=== PATIENT | female | born 1955 | race Caucasian/White ===

== ENCOUNTER → 2017-08-14 | Outpatient (CLI) | payer BC, OTHER ==
[~2017-08-14] MED LIST: ASPI81EC PO; CONEST.625 PO; HYDCHL12.5 PO; MULVITMIND PO; [UNRECOGNIZED DRUG - OTHER]
[2017-08-14 16:17] LABS: Albumin, Blood 3.9 g/dL (3.4-5.0); Albumin/Globulin Ratio 1.2 (0.8-1.8); Aspartate Aminotrans (AST/SGOT 14 U/L (12-37); Bilirubin, Total 0.4 mg/dL (0.1-1.0); Blood Urea Nitrogen 24 mg/dL (8-24); CHOL/HDL RATIO 2.4; Calcium, Blood 8.8 mg/dL (8.5-10.1); Chloride, Blood 107 mmol/L (98-108); Cholesterol 262 mg/dL (50-200); Creatinine, Blood 0.65 mg/dL (0.40-1.00); Globulin, Blood 3.3 g/dL (2.2-4.0); Glomerular Filtration Rate >60 (60-); Glucose, Blood 92 mg/dL (70-99); HDL Cholesterol 108 mg/dL (>39); LDL/HDL RATIO 1.3; Low Density Lipoprotein Chol 140 mg/dL (0-110); Potassium, Blood 4.3 mmol/L (3.5-5.5); Sodium, Blood 141 mmol/L (136-145); Total Protein, Blood 7.2 g/dL (6.4-8.2); Triglycerides 69 mg/dL (30-160); Very Low Density Lipoprot Chol 13 mg/dL (6-32)
[2017-08-14 17:31] LABS: Alanine Aminotransfer (ALT/SGP 20 U/L (12-78); Alk Phos 97 U/L (50-136); Anion Gap 8 mmol/L (6-16); CO2, Blood 26 mmol/L (21-32)
== END | disposition home or self-care (01) ==
LOC: LAB SHORT 13:58 → LAB 13:58
PROVIDERS: Hospitalist
DX: Z00.00 Encounter for general adult medical examination without abnormal findings (principal); E78.5 Hyperlipidemia, unspecified; I10 Essential (primary) hypertension
CPT/HCPCS: 80053; 80061

== ENCOUNTER 2019-12-08 06:13 | Day surgery (SDC) | payer BC, OTHER ==
[~2019-12-08] VITALS: Ht 167.6 cm; Wt 80.1 kg
[~2019-12-08 06:13] MED LIST changes: +OMEP20ER; +VITAMIN D W/CALCIUM PO
[2019-12-08] MEDS ORDERED: BARIATRIC VITAMIN PO ×2 (06:32→06:33)
[2019-12-08] MEDS ORDERED: Prilosec Otc20 MG PO (06:34)
--- NOTE | 2019-12-08 07:14 | NUR ---
Lungs clear T/O to Auscultation. Wedding rings taped, waiver signed. Patient put her glasses in her purse for safe keeping.
--- NOTE | 2019-12-08 07:26 | NUR ---
NO CLIP PREP PER DR MONZON.
--- NOTE | 2019-12-08 14:39 | NUR ---
CATHETER PLUNKETT CATHETER REMOVED AT 1400. PT IS ALERT, ORIENTED AND HAS BEEN ABLE TO AMBULATE SINCE RETURNING FROM SURGERY. AWAITING VOID SO PT CAN DISCHARGE HOME.
[2019-12-08] MEDS ORDERED: HYDR1TAB94 PO (17:46)
[2019-12-08] MEDS ORDERED: ACET325 PO (17:46)
[2019-12-08] MEDS ORDERED: DOCU100 PO (17:46)
--- NOTE | 2019-12-08 18:10 | NUR ---
DISCHARGE PT WAS ABLE TO VOID AFTER SURGERY WITH MINIMAL 37ML POST VOID RESIDUAL. SHE WAS ALSO ABLE TO AMBULATE AND TAKE PO WITHOUT NAUSEA. PT WAS PROVIDED WITH WRITTEN AND VERBAL DISCHARGE INSTRUCTIONS. HARD SCRIPT PROVIDED WITH DISCHARGE INFORMATION. PT HAVING SCAN AMOUNT OF BLEEDING AT TIME OF DISCHARGE. PT WAS ABLE TO AMBULATE OUT INDEPENDENTLY. VSS. WILL MONITOR UNTIL REPORT TO ONCOMING RN.
== END 2019-12-08 18:05 | disposition home or self-care (01) ==
LOC: ORSCMMR 06:13 → ORD 07:30 → SURS 09:27 → ORSCMMR 18:05
PROVIDERS: Obstetrics & Gynecology
PROC: 0UQF0ZZ Repair Cul-de-sac, Open Approach (ICD-10-PCS; principal; 2019-12-08 07:30)
PROC: 0JQC0ZZ Repair Pelvic Region Subcutaneous Tissue and Fascia, Open Approach (ICD-10-PCS; principal; 2019-12-08 07:30)
DX: N81.6 Rectocele (principal); N81.10 Cystocele, unspecified; N81.5 Vaginal enterocele; K21.9 Gastro-esophageal reflux disease without esophagitis; Z79.899 Other long term (current) drug therapy
CPT/HCPCS: J0171; J0690; J1885; J2250; J2704; J3010; J7120

== ENCOUNTER 2020-01-27 06:53 | Day surgery (SDC) | payer BC, OTHER, MEDICARE ==
[~2020-01-27] VITALS: Ht 168 cm; Wt 74.8 kg
[~2020-01-27 06:53] MED LIST changes: +ACET325 PO; +BARIATRIC VITAMIN PO; +DOCU100 PO; +HYDR1TAB94 PO; +MYLANTA GAS MIN42 MG PO; +Prilosec Otc20 MG PO; +TUMS500 MG PO; +Voltaren100 GM TOP
--- NOTE | 2020-01-27 08:18 | NUR ---
Ambulatory in Day Surgery History, Chart, Medications and Allergies reviewed before start of procedure.Patient confirms NPO status and agrees with scheduled surgery. Patient reports completing Chlorhexadine shower X2 prior to admission to hospital.Surgical site prepped with 2% Chlorhexidine cloth wipe.
--- NOTE | 2020-01-27 16:25 | NUR ---
SHIFT SUMMARY PT EATING AND DRINKING, VOIDING. PT BEEN UP AND VOIDED. PT WORKED WITH THERAPY. UP TO CHAIR. PT BEEN ASSISTED WITH ADL'S PRN.
[2020-01-28 04:08] LABS: BASOPHILS ABSOLUTE AUTO 0.03 K/mm3 (0.00-0.23); BASOPHILS PERCENT AUTO 1 % (0-2); EOSINOPHILS ABSOLUTE AUTO 0.04 K/mm3 (0.00-0.68); EOSINOPHILS PERCENT AUTO 1 % (0-6); Hematocrit 33.8 % (33.0-51.0); Hemoglobin 10.9 g/dL (11.5-16.0); IMMATURE GRAN ABSOLUTE AUTO 0.02 K/mm3 (0.00-0.10); IMMATURE GRAN PERCENT AUTO 0 % (0-1); LYMPHOCYTES ABSOLUTE AUTO 1.77 K/mm3 (0.84-5.20); LYMPHOCYTES PERCENT AUTO 27 % (21-46); MONOCYTES ABSOLUTE AUTO 0.41 K/mm3 (0.16-1.47); MONOCYTES PERCENT AUTO 6 % (4-13); Mean Corpuscular HGB 30.3 pg (26.0-34.0); Mean Corpuscular HGB Conc 32.2 g/dL (31.5-36.5); Mean Corpuscular Volume 94 fL (80-100); Mean Platelet Volume 12.7 fL (9.1-12.4); NEUTROPHILS ABSOLUTE AUTO 4.29 K/mm3 (1.96-9.15); NEUTROPHILS PERCENT AUTO 65 % (41-73); Platelet Count 181 K/mm3 (150-400); RDW Coefficient Variation 13.8 % (11.7-14.2); RDW Standard Deviation 47.5 fL (35.1-46.3); White Blood Cell Count 6.56 K/mm3 (4.00-11.30)
--- NOTE | 2020-01-28 04:21 | NUR ---
SHIFT SUMMARY POD#1. AAOX4. DRESSING TO RIGHT KNEE C/D/I. PAIN CONTROLLED WITH SCHEDULED TORADOL/TYLENOL + 1 ROXICODONE Q4H. NO NAUSEA/EMESIS. PT UP AMBULATING IN ROOM + OUT IN HALLS MULTIPLE TIMES THIS SHIFT, SBA WITH FWW. GOOD PO INTAKE + OUTPUT. PPP, DENIES N/T ALL EXTREMITIES, MOVES TOES WELL BLE. PT RESTING INTERMITTENTLY THIS SHIFT. NO ACUTE CHANGES OVER NIGHT. PT CURRENTLY RESTING WITH CALL LIGHT IN REACH.
[2020-01-28 04:36] LABS: Anion Gap 5 mmol/L (6-16); Blood Urea Nitrogen 15 mg/dL (8-24); Bun/Creatinine Ratio 26.7 (12.0-20.0); CO2, Blood 27 mmol/L (21-32); Calcium, Blood 8.6 mg/dL (8.5-10.1); Chloride, Blood 110 mmol/L (98-108); Creatinine, Blood 0.56 mg/dL (0.40-1.00); Glomerular Filtration Rate >60 (60-); Glucose, Blood 114 mg/dL (70-99); Potassium, Blood 4.1 mmol/L (3.5-5.5); Sodium, Blood 142 mmol/L (136-145)
--- NOTE | 2020-01-28 11:40 | NUR ---
PT SAT ON CHAIR THIS MORNING AND FELT DIZZY. VIJAY PALOMINO TOOK HIS BLOOD PRESSURE AND IT WAS 66/41. PT REPORT NAUSEA AND VOMITED X1. LEV FONTANEZ CAME IN TO HELPED IN AND ASSESSED PT. LR FLUIDS ADMINISTER. PT FELT BETTER AFTER SHE VOMITED. PT TOLERATED BREAKFAST MEAL WELL, DENIES NAUSEA AND VOMITING. SHE ALSO TOLERATED PO MEDS. SHE C/O OF PAIN, PAIN MEDS ADMINSTERED. PHYSICAL THERAPIST CAME IN, FELT DIZZY AFTER WALKING AT THE HALLWAY. SHE SAT ON CHAIR, BP WAS WNL. PT BACK TO BED, AND AT REST, COMFORTABLE WITH WARM BLANKET.
[2020-01-28] MEDS ORDERED: Percocet 5-3251 EACH PO (12:01)
[2020-01-28] MEDS ORDERED: XARELTO20 MG PO (12:04)
--- NOTE | 2020-01-28 13:11 | NUR ---
PT REPORTS MILD DIZZINESS WHEN GETTING UP IN BED TO BATHROOM. VS 109/56 R ARM SITTING. 99/52 R ARM STANDING AT 1259. PT TOLERATING PO FLUIDS AND INTAKE WELL. DENIES NAUSEA AND VOMITING. DECLINES PHYSICAL THERAPIST AT THE MOMENT DUE TO LIGHT-HEADEDNESS. PT WILL COME IN LATER TO EVAL PATIENT. PT HAS AN OUTPUT OF 200ML, DARK URINE. PT STILL IN LR FLUIDS, INFUSING.
--- NOTE | 2020-01-28 16:06 | NUR ---
ORTHOSTATIC HYPOTENSIVE PT REPORTS DIZZY WHILE DOING THERAPY. PT SAT DOWN BP AT 85/42, 114/56 AFTER 10 MINS AND 123/61 AFTER 5 MINS. PT C/O PAIN 01/30, CALLED DR. FRY FOR KETOROLAC. PT HAS LR AND NS FLUIDS RUNNING W/ PAIN MEDS. PT DENIES CHEST PAIN, SOB, NAUSEA, VOMITING, NUMBNESS, AND TINGLING SENSATION. PT ALSO STS SHE HAD 1 UNMEASURED VOID, URINE WAS TREE KILLER IN COLOR.
--- NOTE | 2020-01-28 17:58 | NUR ---
Provided prayer and emotional encouragement to Rosita. She recently retired and happily spoke at length about her plans for the future. She is being discharged this afternoon.
--- NOTE | 2020-01-28 19:28 | NUR ---
SHIFT SUMMARY POD1 FOR R TKA. PT HAS BEEN ORTHOSTATIC HYPOTENSIVE WITH DIZZINESS SINCE THIS MORNING. PT ALSO C/O NAUSEA AFTER DRINKING TOO FAST. SHE HAD 1 VOMITING EPISODE IN THE MORNING. FLUID INFUSING ON LEFT ARM. SHE WORKED WITH PHYSICAL THERAPIST TODAY, UNABLE TO TOLERATE TO FINISH THE THERAPY SESSION DUE TO DIZZINESS AND LOW BP. PT DENIES SOB AND NO CHEST PAIN/PRESSURE. PT HAS ADEQUATE URINE OUTPUT, STARTED DARK YELLOW AND PROGRESSIVELY GETTING CASE RESOLUTION SPECIALIST. PT PAIN IS MANAGED WITH TORADOL, TYLENOL AND AIDE. PAIN LEVEL AT 2/10. PT TOLERATING MEALS WELL.
--- NOTE | 2020-01-29 05:50 | NUR ---
POD 2 S/P R TKA. PT VSS, BP WNL. PT DENIED DIZZINESS WHEN UP. DRESSING CDI, CIRC CHECKS WNL. POLAR PACK IN PLACE. PAIN MGD PER EMAR W/REP RELIEF. PT MORENA REG PO, DID C/O MILD HEARTBURN RELIEVED W/TUMS. PT UP OOB W/FWW+SBA, MORENA WELL. PT USING CALL LIGHT FOR ASSISTANCE.
--- NOTE | 2020-01-29 12:37 | NUR ---
DISCHARGE SUMMARY PT DC'D VIA WHEELCHAIR WITH HEEL SHAVERMELECIO AND PT'S FRIEND AT 1220. PT A0X4. VSS. PT REPORTS PAIN 3/10, WELL CONTROLLED WITH PAIN MEDICATION. ADEQUATE URINE OUTPUT. PT TOLERATED BREAKFAST MEAL WELL BUT EXPERIENCE NAUSEA AFTER LUNCH MEAL. SHE REPORTS PASSING FLATUS BUT DENIES BOWEL MOV'T. PT DENIES SOB, DIZZINESS, CHEST PAIN/PRESSURE, NUMBNESS AND TINGLING SENSATION. DRESSING ON R KNEE IS CLEAN, DRY AND INTACT. DISCUSSED DISCHARGE INSTRUCTIONS TO PT W/ INCISION CARE AND IF ANY WORSENING SX TO CALL . SHE WAS RECEPTIVE. SHE RECIEVED 2 HAND OUT MEDICATION UPON DISCHARGE FOR PERCOCET AND XARELTO. PT HAS A F/U APPT ON THE OF THIS MONTH.
== END 2020-01-29 12:19 | disposition home or self-care (01) ==
LOC: ORSCMMR 06:53 → ORD 08:15 → ORSCMMR 08:30 → ORD 08:30 → ORSCMMR 12:20 → SURS 12:20 → ORD 13:45 → SURS 01-29 12:19 → ORSCMMR 01-29 12:19
PROVIDERS: Orthopaedic Surgery
PROC: 8E0Y0CZ Robotic Assisted Procedure of Lower Extremity, Open Approach (ICD-10-PCS; principal; 2020-01-27 08:30)
PROC: 0SRC0JA Replacement of Right Knee Joint with Synthetic Substitute, Uncemented, Open Approach (ICD-10-PCS; principal; 2020-01-27 08:30)
DX: M17.11 Unilateral primary osteoarthritis, right knee (principal); Z23 Encounter for immunization; I10 Essential (primary) hypertension; K21.9 Gastro-esophageal reflux disease without esophagitis; Z79.899 Other long term (current) drug therapy
CPT/HCPCS: 27447; S2900; 36415; 73560-RT; 80048; 85025; 88300; 97110; 97116; 97161; 97530; A9270; C1776; J0171; J0690; J0735; J1100; J1885; J2250; J2370; J2405; J2704; J2795; J3010; J7030; J7120; Q2038